=== PATIENT | male | born 1955 | race Caucasian/White ===

== ENCOUNTER 2023-12-24 07:27 | Outpatient (CLI) | payer MEDICARE, OTHER | END 2023-12-24 07:28 | disposition home or self-care (01) | LOC: BICMRI 07:27 | PROVIDERS: ATTEND Orthopaedic Surgery | DX: M24.811 Other specific joint derangements of right shoulder, not elsewhere classified (principal); S43.431A Superior glenoid labrum lesion of right shoulder, initial encounter; M75.51 Bursitis of right shoulder; M25.411 Effusion, right shoulder; R60.0 Localized edema ==